=== PATIENT | female | born 1945 | race Two or more races ===

== ENCOUNTER 2019-01-19 11:32 | Day surgery (SDC) | payer MEDICARE ==
[~2019-01-19] VITALS: Ht 152.4 cm; Wt 77.0 kg
[~2019-01-19 11:32] MED LIST: CEPH500 PO; COZAAR PO; ESTR1 PO; ESTR2 PO; HYDACE5 PO; HYDCHL12.5 PO; HYDROCHLOROTHIAZIDE PO; LATANOPROST 0.7.5 ML; LEVO-T100 MCG PO; LEVOTHROID PO; LEVSOD75 PO; LOSARTAN-HCTZ1 EAC1 PO; MOMENI; MONT10T PO; Omeprazole20 M1 PO; PRAV20 PO; SIMV20 PO; TIAZAC PO; TRAM50 PO; [UNRECOGNIZED DRUG - OTHER] PO
== END 2019-01-19 13:32 | disposition home or self-care (01) ==
LOC: ORSCSDS 11:32
PROVIDERS: Internal Medicine Gastroenterology
PROC: 0DBK8ZX Excision of Ascending Colon, Via Natural or Artificial Opening Endoscopic, Diagnostic (ICD-10-PCS; principal; 2019-01-19 12:45)
DX: Z12.11 Encounter for screening for malignant neoplasm of colon (principal); K63.5 Polyp of colon; K57.30 Diverticulosis of large intestine without perforation or abscess without bleeding; Z87.11 Personal history of peptic ulcer disease; K64.8 Other hemorrhoids; I10 Essential (primary) hypertension; E78.5 Hyperlipidemia, unspecified; E03.9 Hypothyroidism, unspecified; E78.1 Pure hyperglyceridemia; Z79.899 Other long term (current) drug therapy
CPT/HCPCS: 88305; J7120

== ENCOUNTER → 2021-10-19 | Outpatient (CLI) | payer OTHER ==
[2021-10-23 20:10] LABS: HSV-1 DNA Negative (Negative); HSV-2 DNA Positive (Negative)
== END ==
LOC: LAB SHORT 14:00
PROVIDERS: Nurse Practitioner Family
DX: R21 Rash and other nonspecific skin eruption (principal); Z88.0 Allergy status to penicillin; Z88.5 Allergy status to narcotic agent; Z88.8 Allergy status to other drugs, medicaments and biological substances
CPT/HCPCS: 87529; 87798

== ENCOUNTER 2022-11-11 07:10 | Day surgery (SDC) | payer OTHER ==
[~2022-11-11] VITALS: Ht 152.4 cm; Wt 71.6 kg
--- NOTE | 2022-11-11 11:05 | NUR ---
PATIENT ARRIVED TO ROOM VIA BED. A&O X4, VSS ON RA, LUNGS CLEAR. PATIENT REPORTS PAIN TO LEFT KNEE 5/10 AT THIS TIME. AQUACEL & POLAR PACK TO LEFT KNEE, C/D/I. PATIENT ABLE TO WIGGLE TOES & HAS FULL SENSATION TO BLE, PEDAL PULSES STRONG & PALPABLE. ORIENTED TO ROOM & CALL LIGHT, IN REACH. TOLERATING SIPS OF WATER CURRENTLY.
--- NOTE | 2022-11-11 17:54 | NUR ---
SHIFT SUMMARY POD 0 L TKA. X2 AQUACELS TO LEFT KNEE, C/D/I. POLAR PACK IN PLACE WHILE AT REST. REAL'S ON, SCD'S ON. AMBULATING WELL TO BATHROOM, UP IN CHAIR T/O AFTERNOON. WORKED WITH PT & DID WELL. EATING, DRINKNING, & VOIDING WELL. CALLS APPROPRIATELY, IN REACH. WILL REPORT TO ONCCLAUDIA RN AT 1900.
--- NOTE | 2022-11-12 05:49 | NUR ---
SHIFT SUMMARY A/O X4- POD1 L TOTAL KNEE, AQUACEL IN PLACE C/D/I. AMBULATING WELL W/ ONE ASSIST W/ FWW AND GB. NO PAIN REPORTED THROUGHOUT THE NIGHT. VITAL SIGNS STABLE. VOIDING WELL AND PASSING FLATUS. TOLERATING PO INTAKE. WILL CONTINUE TO MONITOR AND REPORT TO ONCOMING RN.
[2022-11-12 05:50] LABS: BASOPHILS ABSOLUTE AUTO 0.02 K/mm3 (0.00-0.23); BASOPHILS PERCENT AUTO 0 % (0-2); EOSINOPHILS ABSOLUTE AUTO 0.01 K/mm3 (0.00-0.68); EOSINOPHILS PERCENT AUTO 0 % (0-6); Hematocrit 33.8 % (33.0-51.0); Hemoglobin 11.2 g/dL (11.5-16.0); IMMATURE GRAN ABSOLUTE AUTO 0.13 K/mm3 (0.00-0.10); IMMATURE GRAN PERCENT AUTO 1 % (0-1); LYMPHOCYTES PERCENT AUTO 5 % (21-46); MONOCYTES PERCENT AUTO 8 % (4-13); Mean Corpuscular HGB 27.7 pg (26.0-34.0); Mean Corpuscular HGB Conc 33.1 g/dL (31.5-36.5); Mean Corpuscular Volume 84 fL (80-100); Mean Platelet Volume 8.9 fL (9.1-12.4); NEUTROPHILS ABSOLUTE AUTO 14.32 K/mm3 (1.96-9.15); NEUTROPHILS PERCENT AUTO 86 % (41-73); Platelet Count 332 K/mm3 (150-400); RDW Coefficient Variation 13.5 % (11.7-14.2); Red Blood Cell Count 4.05 M/mm3 (3.80-5.20); White Blood Cell Count 16.58 K/mm3 (4.00-11.30)
[2022-11-12 06:07] LABS: Bun/Creatinine Ratio 22.9 (12.0-20.0); Calcium, Blood 8.6 mg/dL (8.5-10.1); Creatinine, Blood 0.83 mg/dL (0.40-1.00); Magnesium, Blood 2.1 mg/dL (1.6-2.4); Potassium, Blood 3.7 mmol/L (3.5-5.5)
[2022-11-12] MEDS ORDERED: ACET500 PO (07:38)
[2022-11-12] MEDS ORDERED: OXYC5 PO (07:38)
[2022-11-12] MEDS ORDERED: ASPI81CH PO (07:39)
--- NOTE | 2022-11-12 11:15 | NUR ---
DISCHARGE PT HAS CLEARED THERAPY. PAIN WELL CONTROLLED. EATING, DRINKING, & VOIDING WELL. FARAZ & ALEXANDRE PACK SENT w/ PT. ESCORTED OUT VIA W/C.
== END 2022-11-12 11:00 | disposition home or self-care (01) ==
LOC: ORSCMMR 07:10 → SURS 11:21 → ORD 14:00 → ORSCMMR 14:00
PROVIDERS: Orthopaedic Surgery
PROC: 8E0Y0CZ Robotic Assisted Procedure of Lower Extremity, Open Approach (ICD-10-PCS; principal; 2022-11-11 08:00)
PROC: 0SRD0JA Replacement of Left Knee Joint with Synthetic Substitute, Uncemented, Open Approach (ICD-10-PCS; principal; 2022-11-11 08:00)
DX: M17.12 Unilateral primary osteoarthritis, left knee (principal); I10 Essential (primary) hypertension; J45.909 Unspecified asthma, uncomplicated; K21.9 Gastro-esophageal reflux disease without esophagitis; E03.9 Hypothyroidism, unspecified; E78.5 Hyperlipidemia, unspecified; Z79.899 Other long term (current) drug therapy
CPT/HCPCS: 27447; 20985; S2900; 36415; 73560-LT; 80048; 83735; 85025; 97110; 97116; 97162; A9270; C1776; J0171; J0690; J0735; J1100; J1170; J1885; J2250; J2405; J2704; J2795; J3010; J7120

== ENCOUNTER → 2023-08-25 | Outpatient (CLI) | payer OTHER ==
[~2023-08-25] MED LIST changes: +ACET500 PO; +ASPI81CH PO; +OXYC5 PO
[2023-08-25 16:44] LABS: U Amphetamine Screen Not Detected; U Barbituate Screen Not Detected; U Benzodiazapine Screen Not Detected; U Buprenorphine Screen Not Detected; U Cannabinoids Screen Not Detected; U Cocaine Screen Not Detected; U Methadone Screen Not Detected; U Methamphetamine Screen Not Detected; U Opiates Screen Not Detected; U Oxycodone Screen Not Detected; U Phencyclidine Screen Not Detected; U Propoxyphene Screen Not Detected
== END ==
LOC: LAB 15:29 → LAB SHORT 15:29
PROVIDERS: Family Medicine
DX: Z02.83 Encounter for blood-alcohol and blood-drug test (principal); Z79.899 Other long term (current) drug therapy

== ENCOUNTER 2023-12-15 08:27 | Day surgery (SDC) | payer OTHER ==
[~2023-12-15] VITALS: Ht 152.4 cm; Wt 70.3 kg
[2023-12-15] VITALS (14 sets, daily range): BP systolic 82–165; BP diastolic 40–88
--- NOTE | 2023-12-15 11:07 | NUR ---
12/15/23 1107 Daxa Stephens SPINAL NERVE BLOCK COMPLETED BY DR. LONG UPON ENTRY TO OR. PT TOLERATED WELL.
--- NOTE | 2023-12-15 18:05 | NUR ---
SHIFT SUMMARY PT A&OX4, VSS/RA, ANITA PO, VOIDING, AMB SBA FWW/GB TO BRP/CHAIR/BED, UP TO CHAIR THIS AFTERNOON/FOR DINNER, PAIN TREATED WITH TYLENOL/TORADOL/ULTRAM, PHYSICAL THERAPY NERI WILL REPORT TO ONCOMING NOC RN.
[2023-12-16 01:00] VITALS: BP 156/65
--- NOTE | 2023-12-16 04:30 | NUR ---
SHIFT SUMMARY PT RESTED WELL T/O SHIFT. R HIP PRINEO DRESSING REMAINS CDI WITH POLAR PACK IN PLACE. UP WITH SBA USING FWW TO BRP. ULTRAM/TYLENOL/TORADOL FOR PAIN MANAGEMENT. PT LOOKING FORWARD TO DISCHARGING HOME TODAY. USES CALL LIGHT APPROPRIATELY.
[2023-12-16 04:52] LABS: BASOPHILS ABSOLUTE AUTO 0.02 K/mm3 (0.00-0.23); BASOPHILS PERCENT AUTO 0 % (0-2); EOSINOPHILS PERCENT AUTO 0 % (0-6); Hemoglobin 10.9 g/dL (11.5-16.0); IMMATURE GRAN ABSOLUTE AUTO 0.12 K/mm3 (0.00-0.10); IMMATURE GRAN PERCENT AUTO 1 % (0-1); LYMPHOCYTES PERCENT AUTO 4 % (21-46); MONOCYTES ABSOLUTE AUTO 0.88 K/mm3 (0.16-1.47); MONOCYTES PERCENT AUTO 5 % (4-13); Mean Corpuscular HGB 28.4 pg (26.0-34.0); Mean Corpuscular Volume 86 fL (80-100); Mean Platelet Volume 9.1 fL (9.1-12.4); NEUTROPHILS ABSOLUTE AUTO 15.14 K/mm3 (1.96-9.15); NEUTROPHILS PERCENT AUTO 90 % (41-73); Platelet Count 288 K/mm3 (150-400); RDW Coefficient Variation 13.2 % (11.7-14.2); RDW Standard Deviation 40.9 fL (35.1-46.3); Red Blood Cell Count 3.84 M/mm3 (3.80-5.20); White Blood Cell Count 16.76 K/mm3 (4.00-11.30)
[2023-12-16 05:08] VITALS: BP 167/77
[2023-12-16 05:42] LABS: Bun/Creatinine Ratio 22.8 (12.0-20.0); Calcium, Blood 8.5 mg/dL (8.5-10.1); Creatinine, Blood 0.79 mg/dL (0.40-1.00); Potassium, Blood 3.6 mmol/L (3.5-5.5)
[2023-12-16 07:05] VITALS: BP 153/77
[2023-12-16] MEDS ORDERED: ASPI81CH PO (09:42)
[2023-12-16] MEDS ORDERED: ACET500 PO (09:42)
--- NOTE | 2023-12-16 11:30 | NUR ---
DISCHARGE PT A&OX4, VSS/RA, ANITA PO, VOIDING, AMB SBA FWW/UP TO CHAIR, PAIN MANAGED, IV DC'D, AQUACEL DRESSING REINFORCED PRINEO TO COVER SMALL LEAK ON LOWER END OF PRINEO. DC INS PROVIDED. PT REP UNDERSTANDING THOSE INSTRUCTIONS. LEFT FLOOR VIA WC WITH SOUND RECORDIST TO GO HOME WITH WITH ALL PERSONAL POSSESSIONS INCLUDING DC PACKET.
== END 2023-12-16 11:08 | disposition home or self-care (01) ==
LOC: ORSCMMR 08:27 → ORD 10:45 → ORSCMMR 10:45 → SURS 12:51 → ORSCMMR 12-16 11:08
PROVIDERS: Orthopaedic Surgery
PROC: 0SR90JA Replacement of Right Hip Joint with Synthetic Substitute, Uncemented, Open Approach (ICD-10-PCS; principal; 2023-12-15 10:45)
DX: M16.11 Unilateral primary osteoarthritis, right hip (principal); Z96.653 Presence of artificial knee joint, bilateral; K21.9 Gastro-esophageal reflux disease without esophagitis; E78.5 Hyperlipidemia, unspecified; I10 Essential (primary) hypertension; E03.9 Hypothyroidism, unspecified; Z79.899 Other long term (current) drug therapy
CPT/HCPCS: 36415; 72170; 80048; 83735; 85025; 97110; 97116; 97161; A9270; C1713; C1776; J0171; J0690; J0735; J1100; J1885; J2250; J2405; J2704; J2795; J3010; J7120

== ENCOUNTER → 2025-01-26 | Outpatient (CLI) | payer OTHER ==
[2025-02-01 08:59] LABS: VARICELLA-ZOSTER VIRUS BY PCR Not Detected; VARICELLA-ZOSTER VIRUS SOURCE Not Provided
== END ==
LOC: LAB 15:22 → LAB SHORT 15:22
PROVIDERS: Family Medicine
DX: B00.9 Herpesviral infection, unspecified (principal)
CPT/HCPCS: 87798